=== PATIENT | male | born 1980 | race Two or more races ===

== ENCOUNTER → 2016-11-09 | Emergency (ER) | payer SELFPAY ==
--- NOTE | 2016-11-09 03:28 | PDOC ---
History of Present Illness - General History Source: Patient, Family Exam Limitations: No Limitations, Intoxication - History of Present Illness Initial Comments: 11/09/16 03:55 The patient is a 36 year old male with no significant past medical history who presents to the ED with head laceration s/p fall prior to arrival. Patient admits to drinking and as he was attempting to reach for another beer, he fell out of bed and sustained a laceration over the left eye brow on the forehead. Questionable LOC. Denies headache, dizziness, or changes in vision. Patient is accompanied by family. <Sarah Chaney - Last Filed: 11/09/16 03:55> - General History Source: Patient <Bryon Tripathi - Last Filed: 11/09/16 04:56> - General Stated Complaint: INTOX/FALL Time Seen by Provider: 11/09/16 03:28 Past History <Sarah Chaney - Last Filed: 11/09/16 03:55> <Bryon Tripathi - Last Filed: 11/09/16 04:56> - Past Medical History Allergies/Adverse Reactions: Allergies Allergy/AdvReac Type Severity Reaction Status Date / Time No Known Allergies Allergy Verified 11/09/16 03:44 Home Medications: Ambulatory Orders NK [No Known Home Medication] 11/09/16 Review of Systems - Review of Systems Able to Perform ROS?: Yes Comments:: 11/09/16 03:55 CONSTITUTIONAL: Absent: fever, no chills, no fatigue EYES: Absent: visual changes ENT: Absent: ear pain, no sore throat CARDIOVASCULAR: Absent: chest pain, no palpitations RESPIRATORY: Absent: cough, no SOB GI: Absent: abdominal pain, no nausea, no vomiting, no constipation, no diarrhea GENITOURINARY: Absent: dysuria, no frequency, no hematuria MUSCULOSKELETAL: Absent: back pain, no arthralgia, no myalgia SKIN: +laceration over the left eye brow on the forehead Absent: rash NEURO: Absent: headache <Sarah Chaney - Last Filed: 11/09/16 03:55> *Physical Exam - Vital Signs Last Vital Signs Temp Pulse Resp BP Pulse Ox 98.0 F 90 20 138/86 98 11/09/16 03:44 11/09/16 03:44 11/09/16 03:44 11/09/16 03:44 11/09/16 03:44 - Physical Exam Comments: 11/09/16 03:55 GENERAL: Well-appearing, well-nourished. No apparent distress. HEENT: Normocephalic. 3cm laceration over the left eyebrow on the forehead. No racoon or florez signs. PERRL, EOM intact. No hemotympanum. CARDIOVASCULAR: Normal S1, S2. Regular rate and rhythm. PULMONARY: Clear to auscultation bilaterally. ABDOMEN: Soft, non-distended, non-tender. EXTREMITIES: Normal ROM in all four extremities. No gross deformities. SKIN: Warm, dry. No rash NEUROLOGICAL: No focal neurological deficits. <Sarah Chaney - Last Filed: 11/09/16 03:55> Procedures - Laceration/Wound Repair Face Wound Length: 2.6 to 5.0 cm Wound Explored: clean Wound's Depth, Shape: superficial, linear Irrigated w/ Saline: Yes Betadine Prep: Yes Anesthesia: 1% Lidocaine Amount of Anesthetic (ccs): 5 Wound Debrided: minimal Wound Repaired With: Sutures Suture Size/Type: 5:0 Number of Sutures: 8 Layer Closure: No <Bryon Tripathi - Last Filed: 11/09/16 04:56> Medical Decision Making - Medical Decision Making 11/09/16 04:50 Dr. Tripathi: The scribe's documentation has been prepared under my direction and personally reviewed by me in its entirery. I confirm that the note above accurately reflects all work, treatment, procedures, and medical decision making performed by me. Wound closed with [address] scan is negative for any intracranial pathology. <Bryon Tripathi - Last Filed: 11/09/16 04:56> *DC/Admit/Observation/Transfer - Attestations Scribe Attestion: 11/09/16 03:56 Documentation prepared by Sarah Chaney, acting as certified medical aide for Bryon Tripathi MD <Sarah Chaney - Last Filed: 11/09/16 03:55> - Discharge Dispostion Admit: No <Bryon Tripathi - Last Filed: 11/09/16 04:56> Diagnosis at time of Disposition: Laceration Closed head injury Qualifiers: Encounter type: initial encounter Qualified Code(s): S09.90XA - Unspecified injury of head, initial encounter - Discharge Dispostion Disposition: HOME Condition at time of disposition: Stable - Patient Instructions Printed Discharge Instructions: DI for Closed Head Injury, DI for Suture Removal, DI for Laceration Repair -- Simple Additional Instructions: Keep wounclean and dry. WAsh with soap and water... REturn in 5 days for suture removal Print Language: DIVEHI - Post Discharge Activity Work/School Note: Back to Work
[2016-11-09 03:45] VITALS: BP 138/86; PULSE 90; TEMP 98; BMI 29.0
== END | disposition home or self-care (01) ==
LOC: JER 03:13
PROC: 0HQ1XZZ Repair Face Skin, External Approach (ICD-10-PCS; principal; 2016-11-09)
DX: S01.81XA Laceration without foreign body of other part of head, initial encounter (principal); S09.90XA Unspecified injury of head, initial encounter; W06.XXXA Fall from bed, initial encounter; Y93.89 Activity, other specified; Y92.003 Bedroom of unspecified non-institutional (private) residence as the place of occurrence of the external cause
CPT/HCPCS: 70450-TC; 99281-25

== ENCOUNTER 2016-11-14 09:07 | Emergency (ER) | payer SELFPAY ==
[2016-11-14 09:25] VITALS: BP 143/83; PULSE 79; TEMP 98.4; BMI 24.2
[2016-11-14] MEDS ORDERED: DIPHTH,PERTUSS(ACELL),TET 0.5 ML DISP.SYRIN IM ONE (10:18)
--- NOTE | 2016-11-14 10:22 | PDOC ---
Suture Removal/Wound Check HPI - History of Present Illness Chief Complaint: Suture/Staple Removal(Here) Stated Complaint: STAPLE/SUTURE REMOVAL Time Seen by Provider: 11/14/16 09:30 History Source: Yes: Patient Exam Limitations: Yes: No Limitations Treated at: [facility] ED Date of Last ED visit: 11/09/16 - Previous ED Treatment Type of procedure performed on last visit: Yes: Laceration Repair Antibiotics Prescribed: No - Onset of Previous Treatment Date of Occurence: 11/09/16 Past History - Past Medical History Allergies/Adverse Reactions: Allergies No Known Allergies Allergy (Verified 11/14/16 09:20) Home Medications: Ambulatory Orders NK [No Known Home Medication] 11/09/16 General: Yes: no pertinent history - Social History Smoking Status: Never smoked Suture Removal/Wound Check PE - Physical Exam Laceration/Wound Check Symptoms: reports: None Current Severity Level: None Maximum Severity Level: None Pain Localization: None Location of Laceration/Wound: left: Face (left forehead ) Pain Radiation: None Comments: 11/14/16 10:18 Seen here on 11/09/2016 due to falling when he was intoxicated patient received 8 interrupted sutures to his left forehead laceration. Patient did not get T dap vaccine patient does not know the date of his last tetanus.. He offers no complaints' *Review of Systems - Review of Systems Able to Perform ROS?: Yes Constitutional: No: Symptoms Reported HEENTM: No: Symptoms Reported Respiratory: No: Symptoms reported Cardiac (ROS): No: Symptoms Reported ABD/GI: No: Symptoms Reported Integumentary: Yes: Other (8 interrupted sutures left forehead healed well no signs of infection ) Neurological: No: Symptoms reported Procedures - Consent Consent obtained: From Patient - Additional Procedures Progress: 11/14/16 10:20 cleansed skin with betadine around left forehead laceration using says her and hemostat removed 8 interrupted sutures without complication wound edges were well approximated some scabbing noted no bleeding noted no signs of infection. Cleanse wound with normal saline 0.9% dried area and applied a tiny amount of bacitracin Medical Decision Making - Medical Decision Making 11/14/16 10:21 Removal left forehead 8 interrupted sutures patient was seen here on 11/09/2016 due to a fall while intoxicated received 8 interrupted sutures patient offers no complaints presently. Patient does not remember the date of his last tetanus. Plan: 8 interrupted sutures removed without complication to left forehead laceration no signs of infection TDAP 05 ml IM now *DC/Admit/Observation/Transfer Diagnosis at time of Disposition: Visit for suture removal - Discharge Dispostion Disposition: HOME Condition at time of disposition: Stable - Patient Instructions Additional Instructions: You need to cleanse laceration area on left forehead with antibacterial soap and water pat dry and apply a tiny amount of bacitracin ointment until scab falls off Return to emergency room if any signs of infection around laceration redness discharge or tenderness of area Patient voiced understanding of discharge instructions and all questions were answered Your tetanus, diphtheria and pertussis vaccine was updated.
== END 2016-11-14 10:31 | disposition home or self-care (01) ==
LOC: JERFT 09:07 → JER 09:07 → JERFT 10:31
DX: Z48.02 Encounter for removal of sutures (principal)
CPT/HCPCS: 90715; 99281-25

== ENCOUNTER 2017-11-25 13:03 | Emergency (ER) | payer SELFPAY ==
[2017-11-25 13:21] VITALS: TEMP 97; BMI 27.4
[2017-11-25] MEDS ORDERED: BACITRACIN 0.9 GM PACKET ONE (14:08)
--- NOTE | 2017-11-25 14:59 | PDOC ---
Attending Attestation - HPI HPI: 11/25/17 15:08 The patient is a 37 year old male with a significant PMH of alcohol abuse who presents to the emergency department with a head laceration s/p fall. The patient reports walking down the stairs when he fell and hit his head. He reports a laceration to the top of his head which he notes is actively bleeding. The patient notes drinking about 7 beers today after being sober for an extended period of time. The patient denies LOC. He denies chest pain or shortness of breath. He denies weakness or numbness. Allergies: NKA PCP: None reported. <Wero Vargas - Last Filed: 11/25/17 15:08> - Resident Resident Name: Shimon Agosto - ED Attending Attestation I have performed the following: I have examined & evaluated the patient, The case was reviewed & discussed with the resident, I agree w/resident's findings & plan, Exceptions are as noted - Physicial Exam PE: 11/25/17 15:53 Vitals: Triage Vital signs reviewed General Appearance: no acute distress, well nourished well developed, Head: Traumatic, Laceration 6cm to top of head Eyes: Pupils equal reactive round, extraocular movement intact Neck: Supple;No Nucal rigidity Chest Wall: Nontender Cardiac: Regular rate and rhythym, no murmurs, no rubs, no gallops, Lungs: Clear to auscultation bilateral, good air movement bilaterally, Abdomen: Soft, non distended, normal bowel sounds, non tender to palpation Extremities: Full range of motion to all extremities, no cyanosis, clubbing, or edema Skin: Warm and dry, no rashes or lesions, no rash, no petechiae Neuro: AOX3; Cranial Nerves 2-12 grossly intact, Strength intact to all extremities, Sensation intact to all extremities,gait normal Psych: normal mood, normal affect - Medical Decision Making 11/25/17 15:47 37 years old with history of alcohol abuse presents to the ED status post fall and head laceration No acute findings on head CT laceration stapled by resident with good approximation Patient no longer clinically intoxicated no slurred speech no sustained nystagmus steady gait able to family comfortably around the emergency department Findings, the need for follow-up, strict return instructions discussed with patient. <Luis Daniel Marx - Last Filed: 11/25/17 15:54>
--- NOTE | 2017-11-25 15:22 | PDOC ---
History of Present Illness - General Chief Complaint: Injury Stated Complaint: FALL Time Seen by Provider: 11/25/17 13:16 History Source: Patient - History of Present Illness Initial Comments: 11/25/17 15:12 37M with no pmh presents to the ED after falling while inebriated and knocking his head on a table. Patient's niece says he drank all night long until morning and fell backward hurting his head, losing consciousness for about 2 minutes, attempting in vain to explain his behavior using a nonsensical language consisting of various deep guttural phonemes. He progressively regained a somewhat appropriate mental status after a few minutes. Patient is a chronic abuser of alcohol. Past History - Past Medical History Allergies/Adverse Reactions: Allergies Allergy/AdvReac Type Severity Reaction Status Date / Time No Known Allergies Allergy Verified 11/25/17 13:18 Home Medications: Ambulatory Orders NK [No Known Home Medication] 11/09/16 COPD: No Other medical history: etoh abuse - Suicide/Smoking/Psychosocial Hx Smoking History: Never smoked Have you smoked in the past 12 months: No Information on smoking cessation initiated: No Hx Alcohol Use: No Drug/Substance Use Hx: No Substance Use Type: Alcohol Review of Systems - Review of Systems Able to Perform ROS?: No (intoxicated) *Physical Exam - Vital Signs Last Vital Signs Temp Pulse Resp BP Pulse Ox 97 F L 96 H 18 123/69 97 11/25/17 13:18 11/25/17 13:18 11/25/17 13:18 11/25/17 13:18 11/25/17 13:18 - Physical Exam General Appearance: Yes: Nourished, Appropriately Dressed, Intoxicated, Other ( blood on left hand, dressing over head). No: Apparent Distress HEENT: positive: CHARLIE, Normal ENT Inspection, Other (6cm linear laceration over top of scalp. ) Neck: negative: Tender Respiratory/Chest: positive: Lungs Clear, Normal Breath Sounds. negative: Chest Tender, Respiratory Distress Cardiovascular: positive: Regular Rhythm, S1, S2, Tachycardia Gastrointestinal/Abdominal: positive: Normal Bowel Sounds Procedures - Laceration/Wound Repair Upper Head Wound Length: 5.0 to 7.5 cm Wound Explored: clean Wound's Depth, Shape: superficial, linear Irrigated w/ Saline: Yes Wound Repaired With: Gordon Number of Sutures: 7 ED Treatment Course - RADIOLOGY Radiology Studies Ordered: Category Date Time Status HEAD CT WITHOUT CONTRAST [CT] Stat CT Scan 11/25/17 13:21 Ordered Medical Decision Making - Medical Decision Making 11/25/17 15:38 37m hx o etoh abuse presents with laceration of top of scalp. Ct head negative , scap stapled. Will reevaluate the patient for sobriety and d/c *DC/Admit/Observation/Transfer Diagnosis at time of Disposition: Scalp laceration, Alcohol intoxication - Discharge Dispostion Disposition: HOME Condition at time of disposition: Improved Admit: No - Referrals - Patient Instructions Printed Discharge Instructions: Alcohol Use Disorder, DI for Alcohol Abuse Additional Instructions: Come back to the Emergency Department or any primary care provider for staple removal within 7 to 10 days. Come back to the Emergency Department if you experience any concerning, worsening or persisting symptoms. - Post Discharge Activity
[2017-11-25 16:59] VITALS: BP 118/67; PULSE 90
== END 2017-11-25 17:00 | disposition home or self-care (01) ==
LOC: JER 13:03
PROC: 0HQ0XZZ Repair Scalp Skin, External Approach (ICD-10-PCS; principal; 2017-11-25)
DX: S01.01XA Laceration without foreign body of scalp, initial encounter (principal); W01.190A Fall on same level from slipping, tripping and stumbling with subsequent striking against furniture, initial encounter; Y93.89 Activity, other specified; Y92.038 Other place in apartment as the place of occurrence of the external cause; F10.10 Alcohol abuse, uncomplicated; Y90.9 Presence of alcohol in blood, level not specified
CPT/HCPCS: 70450-TC; 99283-25

== ENCOUNTER 2017-12-02 10:07 | Emergency (ER) | payer SELFPAY ==
[2017-12-02 10:11] VITALS: BP 132/79; PULSE 83; TEMP 98.1; BMI 26.6
--- NOTE | 2017-12-02 10:35 | PDOC ---
Suture Removal/Wound Check HPI - History of Present Illness Chief Complaint: Suture/Staple Removal(Here) Stated Complaint: SUTURE REMOVAL Time Seen by Provider: 12/02/17 10:35 History Source: Yes: Patient Exam Limitations: Yes: No Limitations [facility] Date of Last ED visit: 11/09/16 - Previous ED Treatment Type of procedure performed on last visit: Yes: Laceration Repair Tetanus Immunization: Yes: Up to Date, Last Tetanus <5 years ago Antibiotics Prescribed: No Past History - Travel Traveled outside of the country in the last 30 days: No Close contact w/someone who was outside of country & ill: No - Past Medical History Allergies/Adverse Reactions: Allergies Allergy/AdvReac Type Severity Reaction Status Date / Time No Known Allergies Allergy Verified 12/02/17 10:08 Home Medications: Ambulatory Orders NK [No Known Home Medication] 11/09/16 COPD: No - Suicide/Smoking/Psychosocial Hx Smoking History: Never smoked Have you smoked in the past 12 months: No Information on smoking cessation initiated: No Hx Alcohol Use: No Drug/Substance Use Hx: No Substance Use Type: Alcohol Suture Removal/Wound Check PE - Physical Exam Laceration/Wound Check Symptoms: reports: Improved. denies: Pain, Fever, Chills , Redness, Discharge, Bleeding Current Severity Level: None Maximum Severity Level: None Pain Localization: None Location of Laceration/Wound: right: Head (Midline scalp, [address] with mild scabbing over top of kalia.) *Review of Systems - Review of Systems Able to Perform ROS?: Yes Constitutional: No: Chills, Fever, Weakness Integumentary: Yes: Other (Etna in place to mid scalp.). No: Bruising, Pruritus, Rash Neurological: No: Headache, Numbness, Tingling Medical Decision Making - Medical Decision Making 12/02/17 10:59 Pt. is a 37 y/o M who presents for staple removal of scalp. Wound is clean and well approximated. Kalia removed and pt tolerated procedure well. Bacitracin placed over the site. Return precautions given. Pt. understands all dc instructions and all questions were answered. *DC/Admit/Observation/Transfer Diagnosis at time of Disposition: Removal of kalia - Discharge Dispostion Disposition: HOME Condition at time of disposition: Stable Admit: No - Referrals Referrals: Shyam Julien MD [Staff Physician] - - Patient Instructions Printed Discharge Instructions: DI for Suture Removal Additional Instructions: You had your kalia removed today. Please use bacitracin on the site for the next week. Avoid soaking the area with water for 1 more week as to what the wound fully heal. Follow-up with her primary care doctor as needed Return to the emergency department if you develop fevers, drainage from the site , increased pain, or have any changes in your symptoms. - Post Discharge Activity Forms/Work/School Notes: Back to Work
[2017-12-02] MEDS ORDERED: BACITRACIN 15 GM TUBE TOPICAL OINTMENT ONE (10:49)
== END 2017-12-02 10:53 | disposition home or self-care (01) ==
LOC: JERFT 10:07
DX: Z48.02 Encounter for removal of sutures (principal)
CPT/HCPCS: 99281-25

== ENCOUNTER 2017-12-09 10:28 | Emergency (ER) | payer OTHER ==
[2017-12-09 10:42] VITALS: BP 132/85; PULSE 74; TEMP 98; BMI 25.0
--- NOTE | 2017-12-09 11:02 | PDOC ---
History of Present Illness - General Chief Complaint: Eye Problem Stated Complaint: RT EYE PAIN Time Seen by Provider: 12/09/17 10:58 History Source: Patient Exam Limitations: No Limitations - History of Present Illness Initial Comments: 12/09/17 11:53 Patient is a 37-year-old male with no past medical history presenting emergency department today complaining that he feels like he has sand in his right eye. Patient states symptoms began approximately 5 days ago. Denies any trauma to the eye. 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 States that he feels like his vision is blurry. Denies fevers, chills, pain with eye movement, floaters, flashing lights, diplopia, nausea, vomiting and diarrhea. Past History - Travel Traveled outside of the country in the last 30 days: No Close contact w/someone who was outside of country & ill: No - Past Medical History Allergies/Adverse Reactions: Allergies Allergy/AdvReac Type Severity Reaction Status Date / Time No Known Allergies Allergy Verified 12/09/17 10:39 Home Medications: Ambulatory Orders Ofloxacin 0.3% Ophth Soln [Ocuflox -] 1 drop OP Q2H #120 drops 12/09/17 COPD: No DVT: No - Suicide/Smoking/Psychosocial Hx Smoking History: Never smoked Have you smoked in the past 12 months: No Information on smoking cessation initiated: No Hx Alcohol Use: No Drug/Substance Use Hx: No Substance Use Type: Alcohol Review of Systems - Review of Systems Able to Perform ROS?: Yes Comments:: 12/09/17 11:02 CONSTITUTIONAL: Absent: fever, chills, diaphoresis, generalized weakness, malaise, loss of appetite HEENT: Present: R eye pain, visual changes Absent: rhinorrhea, nasal congestion, throat pain, throat swelling, difficulty swallowing, mouth swelling, ear pain NEUROLOGIC: Absent: headache, focal weakness or paresthesias, dizziness, unsteady gait, seizure, mental status changes, bladder or bowel incontinence Is the patient limited Luxembourgish proficient: No *Physical Exam - Vital Signs Last Vital Signs Temp Pulse Resp BP Pulse Ox 98.0 F 74 18 132/85 100 12/09/17 10:39 12/09/17 10:39 12/09/17 10:39 12/09/17 10:39 12/09/17 10:39 - Physical Exam Comments: 12/09/17 11:02 GENERAL: Well developed, well nourished. Awake and alert. No acute distress. HEENT: Normocephalic, atraumatic. PERRLA, EOMI. No conjunctival pallor. Sclera are non- icteric. Moist mucous membranes. Oropharynx is clear. Fluroscein stain shows a linear corneal abrasion along the iris. Visual acuity OD 40/20, OS 30/20, OU 30/ 20 NECK: Supple. Full ROM. No JVD. Carotid pulses 2+ and symmetric, without bruits. No thyromegaly. No lymphadenopathy. SKIN: Warm and dry. Normal capillary refill. No rashes. No jaundice. NEUROLOGICAL: Alert, awake, appropriate. Cranial nerves 2-12 intact. No deficits to light touch and temperature in face, upper extremities and lower extremities. No motor deficits in the in face, upper extremities and lower extremities. Normoreflexic in the upper and lower extremities. Normal speech. Toes are down- going bilaterally. Gait is normal without ataxia. Medical Decision Making - Medical Decision Making 12/09/17 11:59 Patient is a 37-year-old male with no past medical history of present fevers department today complaining that he feels like there is something in his right eye. Fluorescein stain exam shows a corneal abrasion. We'll treat at this time. Patient given ophthalmology follow-up. Return precautions given. Patient understands all discharge instructions and all questions were answered. *DC/Admit/Observation/Transfer Diagnosis at time of Disposition: Corneal abrasion, right Qualifiers: Encounter type: initial encounter Qualified Code(s): S05.01XA - Injury of conjunctiva and corneal abrasion without foreign body, right eye, initial encounter - Discharge Dispostion Disposition: HOME Condition at time of disposition: Stable Admit: No - Prescriptions Prescriptions: Ofloxacin 0.3% Ophth Soln [Ocuflox -] 1 drop OP Q2H #120 drops - Referrals Referrals: Keegan Ngero MD [Staff Physician] - - Patient Instructions Printed Discharge Instructions: DI for Corneal Abrasion Additional Instructions: You have a corneal abrasion. Please use the eyedrops every 2 hours in the right eye. Please pick the prescription up at the pharmacy. You may take Motrin as needed for pain. Please follow up at the [facility] outpatient clinic, ophthalmology for further treatment. Return to the emergency department if you have worsening pain, increased visual changes, or have any changes in your symptoms. Usted tiene anay abrasin corneal. Utilice las gotas para los ojos cada 2 horas en el tim derecho. Elija la receta en la farmacia. Puede peter Motrin cuando sea necesario para el dolor. Realice un seguimiento en la clnica ambulatoria del [facility] , oftalmologa para recibir ms tratamiento. Regrese al servicio de urgencias si tiene un empeoramiento del dolor, un aumento en los cambios visuales o cambios en los sntomas. [facility] [address] [place] [id number] Print Language: BURUNDIAN - Post Discharge Activity Forms/Work/School Notes: Back to Work
== END 2017-12-09 11:30 | disposition home or self-care (01) ==
LOC: JERFT 10:28
DX: S05.01XA Injury of conjunctiva and corneal abrasion without foreign body, right eye, initial encounter (principal)
CPT/HCPCS: 99281-25